=== PATIENT | female | born 1970 | race Caucasian/White ===

== ENCOUNTER → 2021-01-09 | Day surgery (SDC) | payer BC ==
[~2021-01-09] MED LIST: Acetaminophen 500 MG TAB ONE; BAMLANIVIMAB 700 MG, ETESEVIMAB 700 MG/20 ML 1,400 MG in Sodium Chloride 0.9% 250 ML 25... IVPB SCH; diphenhydrAMINE 50 MG/ML VIAL ONE
== END ==
LOC: CSHSDC 11:07
PROVIDERS: ATTEND Family Medicine
DX: U07.1 COVID-19 (principal); Z23 Encounter for immunization
CPT/HCPCS: 96365; 96374; J1200; J7050; Q0245

== ENCOUNTER 2025-02-13 08:14 | Outpatient (CLI) | payer BC | END 2025-02-13 08:15 | disposition home or self-care (01) | LOC: CSHSLEEP 08:14 | PROVIDERS: ATTEND Family Medicine | DX: G47.9 Sleep disorder, unspecified (principal); R53.83 Other fatigue; R09.89 Other specified symptoms and signs involving the circulatory and respiratory systems; E66.9 Obesity, unspecified; Z68.41 Body mass index [BMI] 40.0-44.9, adult; R06.83 Snoring; G47.00 Insomnia, unspecified; G47.33 Obstructive sleep apnea (adult) (pediatric) | CPT/HCPCS: 95800 ==